=== PATIENT | female | born 1970 | race Hispanic/Latino ===

== ENCOUNTER 2018-12-08 13:53 | Observation (INO) | payer BC, OTHER ==
--- NOTE | 2018-12-08 14:28 | ED PDOC ---
Arrival/HPI - General Chief Complaint: Chest Pain Time Seen by Provider: 12/08/18 14:09 Historian: Patient - History of Present Illness Narrative History of Present Illness (Text): 12/08/18 14:36 Patient is a 48 year old female whose past medical history includes hypertension, hyperlipidemia, and reports recent prediabetes, who presents to the Emergency department complaining of chest pain which started 07:00 today. Patient reports that her chest pain woke her up and was a 6/10 in severity with associated tingling down her left arm. She subsequently took her hypertension medication and a 325mg Aspirin, which alleviated her chest pain. She saw a nurse at her work, where she received and EKG and BP measurement. Patient started experiencing shortness of breath and diaphoresis, and the nurse subsequently recommended that she present to the ED for further evaluation. Of note patient experienced similar symptoms once last year that was less severe, but didn't follow-up with a physician. Her chest pain is currently 4/10 in severity since taking her Aspirin this morning. She denies smoking, drug use, and rarely drinks EtOH. Of note she traveled to [facility] 3 weeks ago. Last normal menstrual period was approximately 2 weeks ago. Patient denies fevers, chills, cough, abdominal pain, nausea, vomiting, diarrhea, back pain, neck pain, headache, dizziness, or any other complaint. PMD: Time/Duration: Other (07:00 this morning) Symptom Onset: Sudden Symptom Course: Improving Severity Level: 6 (initially) Activities at Onset: Sleeping Context: Home Past Medical History - Provider Review Nursing Documentation Reviewed: Yes - Travel History Have you recently traveled outside [place] w/in the past 3 mons?: Yes - Infectious Disease Hx of Infectious Diseases: None - Reproductive Menopause: No Currently : No - Cardiac Hx Cardiac Disorders: Yes Hx Hypertension: Yes - Pulmonary Hx Respiratory Disorders: No - Neurological Hx Neurological Disorder: No - Psychiatric Hx Substance Use: No Family/Social History - Physician Review Nursing Documentation Reviewed: Yes Family/Social History: No Known Family HX Smoking Status: Unknown If Ever Smoked Hx Alcohol Use: Yes Frequency of alcohol use: Socially Hx Substance Use: No Allergies/Home Meds Allergies/Adverse Reactions: Allergies No Known Allergies Allergy (Verified 12/08/18 14:20) Home Medications: Home Meds Medication Instructions Recorded Confirmed Nebivolol [Bystolic] 10 mg PO DAILY 12/08/18 12/08/18 Review of Systems - Physician Review All systems were reviewed & negative as marked: Yes - Review of Systems Constitutional: Other (diaphoretic). absent: Fevers Respiratory: SOB. absent: Cough Cardiovascular: Chest Pain Gastrointestinal: absent: Abdominal Pain, Constipation, Diarrhea, Nausea, Vomiting Musculoskeletal: Other (no weakness in extremities). absent: Back Pain, Neck Pain Neurological: absent: Headache, Dizziness Physical Exam Vital Signs Reviewed: Yes Vital Signs Temp Pulse Resp BP Pulse Ox 12/08/18 14:18 98 F 61 20 120/69 97 Temperature: Afebrile Blood Pressure: Normal Pulse: Regular Respiratory Rate: Normal Appearance: Positive for: Well-Appearing Mental Status: Positive for: Alert and Oriented X 3 - Systems Exam Head: Present: Atraumatic, Normocephalic Pupils: Present: PERRL Extroacular Muscles: Present: EOMI Conjunctiva: Present: Normal Mouth: Present: Moist Mucous Membranes Neck: Present: Normal Range of Motion Respiratory/Chest: Present: Clear to Auscultation, Good Air Exchange. No: Respiratory Distress, Accessory Muscle Use Cardiovascular: Present: Regular Rate and Rhythm, Normal S1, S2. No: Murmurs Abdomen: No: Tenderness, Distention, Peritoneal Signs Back: Present: Normal Inspection Upper Extremity: Present: Normal Inspection. No: Cyanosis, Edema Lower Extremity: Present: Normal Inspection. No: Edema Neurological: Present: GCS=15, CN II-XII Intact, Speech Normal Skin: Present: Warm, Dry, Normal Color. No: Rashes Psychiatric: Present: Alert, Oriented x 3, Normal Insight, Normal Concentration Medical Decision Making ED Course and Treatment: 12/08/18 14:36 Impression: 48 year old female complaining of persistent chest pain that started 07:00 today, which has improved but not resolved. Plan: -- Cardiac Enzymes -- D-dimer -- Labs -- Blood work -- nitroglycerin -- Urinalysis -- Chest X-ray -- Reassess and disposition Prior Visits: Notes and results from previous visits were reviewed. Progress Notes: 12/08/18 16:36 On reevaluation patient reported her chest pain has improved after receiving sublingual NTG. Discussed plan with patient about possible admission, and she is agreeable. 12/08/18 16:46 Discussed case with , who is aware of and agrees to admit patient to observation under his service. - Lab Interpretations I have reviewed the lab results: Yes - RAD Interpretation Narrative RAD Interpretations (Text): 12/08/18 16:57 Chest X-ray: Dictator : Kee Martinez MD IMPRESSION: No acute cardiopulmonary disease appreciated. Sociology Research Assistant: Radiologist - EKG Interpretation EKG Interpretation (Text): 12/08/18 14:01 EKG shows NSR at 60BPM with normal intervals and axis. Interpreted by me Interpreted by ED Physician: Yes Type: 12 lead EKG - Scribe Statement The provider has reviewed the documentation as recorded by the Scribe Keith Flores Provider Scribe Attestation: All medical record entries made by the Scribe were at my direction and personally dictated by me. I have reviewed the chart and agree that the record accurately reflects my personal performance of the history, physical exam, medical decision making, and the department course for this patient. I have also personally directed, reviewed, and agree with the discharge instructions and disposition. Disposition/Present on Arrival - Present on Arrival Any Indicators Present on Arrival: No History of DVT/PE: No History of Uncontrolled Diabetes: No Urinary Catheter: No History of Decub. Ulcer: No History Surgical Site Infection Following: None - Disposition Have Diagnosis and Disposition been Completed?: Yes Diagnosis: Chest pain Disposition: HOSPITALIZED Disposition Time: 16:51 Patient Plan: Admission Patient Problems: Current Active Problems Problem Status Onset Chest pain Acute Condition: IMPROVED Discharge Instructions (ExitCare): Chest Pain (ED) Forms: [employer] (Beninese)
[2018-12-08 15:41] LABS: PH,URINE 5.5 (4.7-8.0); URINE APPEARANCE CLEAR (CLEAR); URINE BILIRUBIN NEGATIVE (NEGATIVE); URINE BLOOD NEGATIVE (NEGATIVE); URINE COLOR LIGHT YELLOW (YELLOW); URINE GLUCOSE (UA) NEGATIVE (NEGATIVE); URINE LEUKOCYTE ESTERASE NEGATIVE Leu/uL (NEGATIVE); URINE PROTEIN NEGATIVE mg/dL (<30 mg/dL); URINE UROBILINOGEN 0.2 E.U./dL (<1 E.U./dL)
[2018-12-08 15:42] LABS: BASO # 0.05 K/mm3 (0.0-2.0); BASO % 0.4 % (0.0-3.0); EOS # 0.2 (0.0-0.7); EOS % 1.9 % (1.5-5.0); HEMOGLOBIN 12.9 g/dL (12.0-16.0); LYMPH # 3.2 (1.2-3.4); LYMPH % 27.8 % (22.0-35.0); MEAN CELL VOLUME 90.9 fl (80.0-105.0); MEAN PLATELET VOLUME 11.3 fl (7.0-11.0); MONO # 0.8 (0.1-0.6); RBC 4.3 10^6/uL (3.5-6.1); RED CELL DISTRIBUTION WIDTH 13.3 % (11.5-14.5); WHITE BLOOD COUNT 11.4 10^3/uL (4.5-11.0)
[2018-12-08 15:50] LABS: ALB/GLOB RATIO 1.3 (1.1-1.8); ALBUMIN 4.4 g/dL (3.0-4.8); ALT/SGPT 35 U/L (7-56); AST/SGOT 31 U/L (14-36); BLOOD UREA NITROGEN 11 mg/dL (7-21); CALCIUM 9.8 mg/dL (8.4-10.5); GFR NON-AFRICAN AMERICAN > 60; INR 1.04; PARTIAL THROMBOPLASTIN TIME 32.3 Seconds (26.9-38.3); PROTHROMBIN TIME 11.5 SECONDS (9.4-12.5)
[2018-12-08 15:59] LABS: D DIMER < 200 ng/mlDDU (0-243)
[2018-12-08 16:01] LABS: TROPONIN I < 0.01 ng/mL
--- NOTE | 2018-12-08 16:44 | RAD ---
Date of service: 12/08/2018 HISTORY: CP COMPARISON: No prior. TECHNIQUE: Chest PA and lateral FINDINGS: Biapical lordotic type technique. LUNGS: No active pulmonary disease. PLEURA: No significant pleural effusion identified. No pneumothorax apparent. CARDIOVASCULAR: No aortic atherosclerotic calcification present. Normal cardiac size. No pulmonary vascular congestion. OSSEOUS STRUCTURES: No significant abnormalities. VISUALIZED UPPER ABDOMEN: Normal. OTHER FINDINGS: None. IMPRESSION: No acute cardiopulmonary disease appreciated.
--- NOTE | 2018-12-08 22:04 | HP ---
HISTORY OF PRESENT ILLNESS: The patient is a 48-year-old woman with a past medical history of hypertension and hyperlipidemia who presented for evaluation of a 1 day history of substernal chest pain. She was in her usual state of health until the day of present to the ED when she awoke with a substernal chest pain. She reported associated paresthesias down her left arm but denied palpitations, diaphoresis, nausea or vomiting. Due to her concern for cardiac involvement, she opted for ED evaluation. Of note, the patient has not had any exertional dyspnea, orthopnea, pedal edema or paroxysmal nocturnal dyspnea. PAST MEDICAL HISTORY: As per HPI. PAST SURGICAL HISTORY: . ALLERGIES: NKDA. MEDICATIONS: Ziac 10/12.5 mg p.o. daily. FAMILY HISTORY: Noncontributory. SOCIAL HISTORY: The patient reports social alcohol use and denies tobacco use or illicit drug abuse. REVIEW OF SYSTEMS: A 12-point review of systems is negative except as per HPI. PHYSICAL EXAMINATION: VITAL SIGNS: Temperature 98, pulse 61, blood pressure 122/82, respiratory rate 20, oxygen saturation 97% on room air. GENERAL: No apparent distress. HEENT: PERRL, EOMI. No scleral icterus. No conjunctival pallor. NECK: No JVD. No bruits. LUNGS: Clear to auscultation. CARDIOVASCULAR: Regular rate and rhythm. Normal S1, S2. Grade II/ DANIELE to LLSB. ABDOMEN: Normoactive bowel sounds, soft, nontender, nondistended. EXTREMITIES: No edema. NEUROLOGIC: Awake, alert and oriented x 3. No focal motor deficits. LABORATORY DATA: WBC 11.4 with 63% neutrophils, hemoglobin 13, hematocrit 39, platelets 313. Sodium 137, potassium 4.4, chloride 102, bicarb 27, BUN 11, creatinine 0.7, glucose 96. Troponin < 0.01. D-dimer < 200. IMAGING STUDIES: Chest x-ray demonstrates no acute pathology. DIAGNOSTIC STUDIES: EKG demonstrates normal sinus rhythm at 60 beats per minute with no ST-T changes. ASSESSMENT: The patient is a 48-year-old woman with a past medical history of hypertension and hyperlipidemia who presented with a 1 day history of substernal chest pain and was admitted for observation to rule out acute coronary syndrome. PLAN: 1. Chest pain, rule out ACS. Initial troponin and EKG are unremarkable. We will cycle cardiac enzymes and EKGs q. 8 hours x 3 and if they remain negative the patient will be discharged home with outpatient followup and stress testing. 2. Hypertension. The patient is on Ziac 10/12.5 mg p.o. daily at home however this is not on formulary thus we will start Metoprolol 25 mg p.o. b.i.d. 3. Hyperlipidemia. Recent labs from 08/13/18 demonstrates total cholesterol of 246 and the patient declined statin therapy opting for lifestyle modifications. We will order a repeat lipid panel. 4. Prophylaxis. GI prophylaxis is not indicated as the patient is eating. DVT prophylaxis not indicated as the patient is ambulatory. CODE STATUS: Full code. Reymundo Bowie MD MTDD
[2018-12-09 02:48] VITALS: RESP 20
[2018-12-09 07:02] LABS: HEMOGLOBIN 12.1 g/dL (12.0-16.0); MEAN CELL VOLUME 90.9 fl (80.0-105.0); MEAN CORPUSCULAR HEMOGLOBIN 28.9 pg (25.0-35.0); MEAN CORPUSCULAR HGB CONC 31.8 g/dl (31.0-37.0); MEAN PLATELET VOLUME 11.5 fl (7.0-11.0); RBC 4.19 10^6/uL (3.5-6.1); RED CELL DISTRIBUTION WIDTH 13.2 % (11.5-14.5); WHITE BLOOD COUNT 9.3 10^3/uL (4.5-11.0)
[2018-12-09 07:07] VITALS: BP 114/67; TEMP 98.2; O2SAT 99
[2018-12-09 07:11] LABS: ALB/GLOB RATIO 1.3 (1.1-1.8); ALBUMIN 4.1 g/dL (3.0-4.8); ALT/SGPT 28 U/L (7-56); AST/SGOT 27 U/L (14-36); BLOOD UREA NITROGEN 13 mg/dL (7-21); CALCIUM 9.2 mg/dL (8.4-10.5); GFR NON-AFRICAN AMERICAN > 60; HDL CHOLESTEROL 45 mg/dL (29-60)
[2018-12-09 07:22] LABS: LDL CHOLESTEROL 157 mg/dL (0-129); TROPONIN I < 0.01 ng/mL
--- NOTE | 2018-12-09 07:25 | CARD ---
APPROVED REPORT Date of service: 12/08/2018 EKG Measurement Heart [id number] <Conclusion> Normal sinus rhythm Normal ECG
[2018-12-09 09:13] VITALS: PULSE 84
--- NOTE | 2018-12-09 09:15 | CARD ---
APPROVED REPORT Date of service: 12/08/2018 EKG Measurement Heart [id number] <Conclusion> Normal sinus rhythm Normal ECG
--- NOTE | 2018-12-09 11:28 | DS ---
HISTORY OF PRESENT ILLNESS: The patient is in room 260, bed 1. The patient is ambulatory, has no complaints and have been no acute events overnight. PHYSICAL EXAMINATION: VITAL SIGNS: Temperature of 98.2, pulse rate of 55, blood pressure 114/67, respiratory rate of 20 with an O2 saturation of 99%. HEENT: Normal. NECK: Supple with full range of motion. No adenopathy or JVD is present. LUNGS: Clear to auscultation and percussion bilaterally. HEART: Regular rate and rhythm. No murmurs, rubs or gallops. ABDOMEN: Benign. NEUROLOGIC: Intact. LABORATORY DATA: CBC is completely normal. The patient has had three troponins which are negative. IMPRESSION: At this time is chest pain and hypertension. The patient will continue previous medications and will follow up in the office next week. She was also instructed to maintain a low-cholesterol diet. Delonte Bowie MD
== END 2018-12-09 10:56 | disposition home or self-care (01) ==
LOC: ED 13:53 → ERH 16:53 → 2RNO 22:21
PROVIDERS: ADMIT Internal Medicine; ATTEND Internal Medicine
DX: R07.2 Precordial pain (principal); I10 Essential (primary) hypertension; E78.5 Hyperlipidemia, unspecified; R73.03 Prediabetes
CPT/HCPCS: 36415; 71046; 80053; 80061; 81003; 81025; 82550; 83615; 83735; 84484; 85025; 85027; 85378; 85610; 85730; 93005; 99285; G0378